=== PATIENT | female | born 1950 | race Caucasian/White ===

== ENCOUNTER 2018-03-17 08:09 | Outpatient (RCR) | payer BC, MEDICARE | END 2018-05-18 | disposition home or self-care (01) | LOC: CR 08:09 | PROVIDERS: ATTEND Surgery | DX: Z48.812 Encounter for surgical aftercare following surgery on the circulatory system (principal); Z95.1 Presence of aortocoronary bypass graft | CPT/HCPCS: 93798 ==

== ENCOUNTER 2018-04-16 08:04 | Outpatient (RCR) | payer MEDICARE | END 2018-04-18 | disposition home or self-care (01) | LOC: CR3 08:04 | PROVIDERS: ATTEND Surgery | DX: Z48.812 Encounter for surgical aftercare following surgery on the circulatory system (principal); Z95.1 Presence of aortocoronary bypass graft ==

== ENCOUNTER → 2018-05-19 | Outpatient (RCR) | payer MEDICARE | END | disposition home or self-care (01) | LOC: CR3 04-19 07:00 | PROVIDERS: ATTEND Surgery | DX: Z48.812 Encounter for surgical aftercare following surgery on the circulatory system (principal); Z95.1 Presence of aortocoronary bypass graft ==

== ENCOUNTER 2018-06-11 07:20 | Outpatient (RCR) | payer MEDICARE | END 2018-06-20 | disposition home or self-care (01) | LOC: CR3 07:20 | PROVIDERS: ATTEND Surgery | DX: Z48.812 Encounter for surgical aftercare following surgery on the circulatory system (principal); Z95.1 Presence of aortocoronary bypass graft; Z29.8 Encounter for other specified prophylactic measures ==

== ENCOUNTER → 2020-07-02 | Outpatient (CLI) | payer MEDICARE ==
[~2020-07-02] VITALS: Ht 162 cm; Wt 82.0 kg
[~2020-07-02] MED LIST: REGADENOSON 0.4 MG/5 ML SYR (LEXISCAN) IV ONE
[2020-07-02] MEDS: CATHETER FLUSH 10 ML SYR IV PRN ×2 (08:11→09:27)
[2020-07-02 09:24] VITALS: BP 196/104
--- NOTE | 2020-07-02 10:52 | Cardiology Stress Test Report ---
Stress Test Report Date of Procedure/Referring: Date of Procedure: July 02, 2020 PCP Lucrecia Reyes MD Admitting Physician Chelsie Gonzalez MD Indications: CP Baseline Heart Rate: 95 Baseline Blood Pressure: Blood Pressure Systolic: 196 Blood Pressure Diastolic: 104 Baseline Vitals Vital Signs Date Time Temp Pulse Resp B/P (MAP) Pulse Ox O2 Delivery O2 Flow Rate FiO2 07/02/20 09:24 100 196/104 (134) 97 Room Air Baseline EKG: Baseline EKG: NSR Summary After explaining the procedure to the patient, she signed a consent and then brought to the stress nuclear laboratory. Patient received 0.4 mg Lexiscan for stress test, ECG, heart rate and blood pressure were monitored continuously. Resting and stress dose of radio tracer were injected, imaging was acquired and reviewed in short axis, horizontal long axis and vertical long axis views. TID: 1.07 SSS: 10 SDS: 9 EF: 69 1. Patient tolerated Lexiscan well 2. Breast attenuation with mild decreased uptake involving the mid to apical anterolateral and inferolateral wall with mild reversibility 3. Normal left ventricular size, EF 69% LUCRECIA REYES MD July 02, 2020 10:52
== END ==
LOC: CARD 08:15
PROVIDERS: ATTEND Internal Medicine Cardiovascular Disease
DX: R07.9 Chest pain, unspecified (principal)
CPT/HCPCS: 78452; 93017; A9502

== ENCOUNTER 2020-07-11 11:00 | Day surgery (SDC) | payer MEDICARE ==
[2020-07-11] VITALS (11 sets, daily range): BP systolic 139–165; BP diastolic 75–91
[2020-07-11 10:04] LABS: HEMATOCRIT 43 % (35-52); HEMOGLOBIN 14.9 g/dL (11.5-16.0); MEAN CORPUSCULAR HEMOGLOBIN 31 pg (25-34); MEAN CORPUSCULAR HGB CONC 35 g/dL (32-36); MEAN CORPUSCULAR VOLUME 89 fL (80-99); MEAN PLATELET VOLUME 9.8 fL (9.0-12.2); PLATELET COUNT 276 10^3/uL (130-400); WHITE BLOOD COUNT 6.5 10^3/uL (4.3-11.0)
--- NOTE | 2020-07-11 10:14 | Diagnostic Imaging Report ---
HISTORY: Abnormal stress test, coronary artery disease, chest pain COMPARISON: 01/26/2012 TECHNIQUE: Frontal view the chest FINDINGS: There is slight elevation of the left hemidiaphragm with mild left basilar atelectasis. No pleural effusion or pneumothorax is seen. The cardiac silhouette is normal in size. Sternotomy wires are noted. IMPRESSION: 1. Mild left basilar atelectasis. Dictated by: Dictated on workstation # [id number]
[2020-07-11 10:17] LABS: PROTHROMBIN TIME PATIENT 13.6 SEC (12.2-14.7)
[2020-07-11 10:27] LABS: ALBUMIN 4.2 GM/DL (3.2-4.5); BILIRUBIN,TOTAL 0.5 MG/DL (0.1-1.0); CALCIUM 9.5 MG/DL (8.5-10.1); CREATININE SERUM 0.96 MG/DL (0.60-1.30); POTASSIUM 3.9 MMOL/L (3.6-5.0); TOTAL PROTEIN 7.6 GM/DL (6.4-8.2)
[~2020-07-11 11:00] MED LIST changes: +ACET-2267 PO; +ASPI-1238 PO; +ATOR40TA70 PO; +HEParin (CATH LAB) 2,000 ML IV ONE; +HYDR25TA4 PO; +LIDOCAINE 1% INJ 20 ML 20 ML VIAL ONE; +MELA10TA2 PO; +METF-397 PO; +MIDAZOLAM 5 MG/5 ML (VERSED) VIAL ONE; +MTP100TCR PO; +NS IV 1000 ML 1,000 ML IV SCH; +NS IV 1000 ML 1,000 ML ONE; -REGADENOSON 0.4 MG/5 ML SYR (LEXISCAN) IV ONE; +VERA180T PO; +fentaNYL INJ 100 MCG/2 ML AMP ONE
[2020-07-11] MEDS ORDERED: METF-397 PO (11:44)
[2020-07-11] MEDS ORDERED: NS IV 1000 ML 1,000 ML IV SCH (11:45)
[2020-07-11] MEDS ORDERED: PATIENT MAY USE OWN MEDS, ALL PO SCH (11:45)
--- NOTE | 2020-07-11 11:45 | Discharge Inst-Post CATH ---
Discharge Inst-CATH/EP Problems Reviewed?: Yes Post Cardiac Cath/EP D/C Inst Follow Up/Plan Appointment with Dr. Reyes's office in 2 to 4 weeks <b>CARDIAC CATH/EP PROCEDURE DISCHARGE INSTRUCTIONS</b> ACTIVITY * Go Home directly and rest. * Limit activity of the leg (or wrist if it was used) for 7 days including aer obics, swimming, jogging, bicycling, etc. * Restrict stair-climbing for 7 days if possible, if not, climb up with your non-cath leg, then bring together on the same step. * Avoid lifting, pushing, pulling or excessive movement of the affected extremi ty for 7 days. * Customary sexual activity may be resumed after 2 days-use caution not to use a position that strains or causes pain to the affected extremity. * No driving for 24 hours. * NO SMOKING. * Avoid straining for bowel movements for 7 days. * Gentle walking on level ground is allowed. * Returning to work will depend on the type of procedure and the results. Your doctor will discuss this with you. CALL YOUR DOCTOR FOR ANY OF THE FOLLOWING: *If bleeding from the puncture site occurs- Apply gentle pressure to site with clean cloth and call your doctor or EMS. * If a knot or lump forms under the skin, increases in size, or causes pain. * If bruising appears to be worsening or moving further down your leg instead of disappearing. * Temperature above 101 F. CARE OF YOUR GROIN INCISION; * Bruising or purple discoloration of the skin near the puncture site is common. * You may shower only, no bathtub bathing for 5 days. Be careful to avoid slipping as your leg may feel stiff. * If a closure device was used on your femoral artery, please see the attached guide regarding care of the device and your leg. * Leave dressing on FOR 24 hours. CARE OF YOUR WRIST INCISION; * Bruising or purple discoloration of the skin near the puncture site is common. * You may shower. * DO NOT submerge wrist. * Leave dressing on FOR 24 hours. LUCRECIA REYES MD July 11, 2020 11:44 am
--- NOTE | 2020-07-11 11:51 | Cardiac Cath Report ---
Cardiac Cath Report Physician (s)/Machine Lacer (s) Physician LUCRECIA GUTIERREZ MD Pre-Procedure Diagnosis Pre-Procedure Diagnosis: Coronary artery disease Post-Procedure Note Procedure Start Date: July 11, 2020 Name of Procedure: Left heart catheterization Left ventriculogram Vein graft angiogram Findings/Procedure Note PROCEDURE NOTE: 70-year-old lady with history of hokum, had history of myomectomy, had CABG x1, abnormal stress test, scheduled for cardiac catheterization After explaining the procedure to the patient, all pros and cons were explained, all questions were answered. The patient signed the consent and then she was placed on the cardiac catheterization laboratory. Groin was prepped SL fashion local anesthesia was used. Sheath placed in the right femoral artery artery. Vishal right and left catheter were used to access the coronary system.Vein Graft evaluated. Vishal right catheter was prolapsed to the left ventricular cavity, left ventriculogram was done, pullback LV to aorta was done. At the end of the procedure the sheath was removed. Closure device was deployed FINDINGS: Hemodynamics LV 156/14, end-diastolic pressure 14 Aorta 155/75 mean of 107 No significant gradient across the left ventricular outflow tract ANATOMY: Left Main is free of obstructive disease Left Anterior Descending has myocardial bridging at the midportion, diagonal artery is occluded, had a patent vein graft to the diagonal system Left Circumflex is moderate in size with no obstructive disease Right Coronary Artery is moderate in size with no obstructive disease Vein Graft evaluation showed 1 vein graft to the diagonal artery that is patent with no obstructive disease LV Gram was done showing mild left ventricular hypertrophy, normal systolic function, EF 60% CONCLUSION: 1. 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 Patent vein graft to the diagonal branch with good flow distally 3. Mild LVH, normal systolic function, no significant gradient across the left ventricular outflow tract DISCUSSION AND RECOMMENDATION: Continue with medical therapy no intervention is warranted Anesthesia Type: Conscious Sedation Estimated blood loss (mL): 25 ml Contrast Amount: 42 ml Total Radiation Dose: 329 mGy Post-Procedure Diagnosis Post-operative diagnosis: Coronary artery disease Hypertrophic obstructive cardiomyopathy Hypertension Hyperlipidemia LUCRECIA GUTIERREZ MD July 11, 2020 11:51 am
== END 2020-07-11 17:10 | disposition home or self-care (01) ==
LOC: CSD 12:10 → CATH 17:10
PROVIDERS: ATTEND Internal Medicine Cardiovascular Disease
DX: I25.10 Atherosclerotic heart disease of native coronary artery without angina pectoris (principal); I42.1 Obstructive hypertrophic cardiomyopathy; I10 Essential (primary) hypertension; I65.23 Occlusion and stenosis of bilateral carotid arteries; E78.5 Hyperlipidemia, unspecified; E11.9 Type 2 diabetes mellitus without complications; K21.9 Gastro-esophageal reflux disease without esophagitis; Z95.1 Presence of aortocoronary bypass graft; Z79.82 Long term (current) use of aspirin; Z79.84 Long term (current) use of oral hypoglycemic drugs; Z79.899 Other long term (current) drug therapy
CPT/HCPCS: 71045; 80053; 80061; 85027; 85610; 85730; 87081; 93459; C1760; C1894; 36415

== ENCOUNTER 2021-08-13 08:44 | Outpatient (CLI) | payer MEDICARE ==
[~2021-08-13] VITALS: Ht 162.6 cm; Wt 75.0 kg
== END 2021-08-16 13:07 | disposition home or self-care (01) ==
LOC: PREOP 08:44
PROVIDERS: ATTEND Specialist
DX: Z01.818 Encounter for other preprocedural examination (principal)

== ENCOUNTER → 2021-08-13 | Outpatient (CLI) | payer MEDICARE ==
[~2021-08-13] MED LIST changes: -HEParin (CATH LAB) 2,000 ML IV ONE; -LIDOCAINE 1% INJ 20 ML 20 ML VIAL ONE; -MIDAZOLAM 5 MG/5 ML (VERSED) VIAL ONE; -NS IV 1000 ML 1,000 ML IV SCH; -NS IV 1000 ML 1,000 ML ONE; -fentaNYL INJ 100 MCG/2 ML AMP ONE
--- NOTE | 2021-08-13 13:13 | Diagnostic Imaging Report ---
INDICATION: 71-year-old postmenopausal female. COMPARISON: None FINDINGS: AP Spine L1-L4: [BMD (g/cm2): 1.056] [T-Score: -1.2] [Z-Score: 0.2] [BMD Previous: na] [BMD % Change: na] LT Hip Neck: [BMD (g/cm2): 0.895] [T-Score: -1.0] [Z-Score: 0.5] LT Hip Total: [BMD (g/cm2):0.902] [T-Score:-0.8] [Z-Score: 0.4] [BMD Previous: na] [BMD % Change: na] RT Hip Neck: [BMD (g/cm2):0.843] [T-Score:-1.4] [Z-Score:0.1] RT Hip Total: [BMD (g/cm2):0.951] [T-score:-0.4] [Z-Score:0.8] [BMD Previous:na] [BMD % Change:na] World Health Organization criteria for BMD interpretation classify patients as Normal (T-score at or above -1.0), Osteopenic (T-score between -1.0 and -2.5) or Osteoporotic (T-score at or below -2.5). LIMITATIONS AND MODIFICATION: None. FRACTURE RISK (FRAX SCORE): The ten year probability of (%): Major Osteoporotic Fracture: [9.7] Hip Fracture: [1.3] IMPRESSION: 1. Osteopenia (Low bone mass). 2. Baseline examination. 3. See below National Osteoporosis Foundation guidelines on when to potentially initiate pharmacologic therapy. Based on the National Osteoporosis Foundation Guidelines, pharmacologic treatment should be initiated in any of the following, unless clinical conditions suggest otherwise: * Any patient with prior fragility fracture of the hip or vertebrae. A spine fracture indicates 5X risk for subsequent spine fracture and 2X risk for subsequent hip fracture. * Osteoporosis (T-score <-2.5). * Postmenopausal women and men age 50 and older with low bone mass/osteopenia (T-score between -1.0 and -2.5) by DXA and 10-year major osteoporotic fracture greater than 20% or a 10-year probability of hip fracture greater than 3%. These fracture risks are supplied above in the FRAX score, if applicable. * Clinician judgement and/or patient preferences may indicate treatment for people with 10-year fracture probabilities above or below these levels. Dictated by: Dictated on workstation # [id number]
--- NOTE | 2021-08-14 14:17 | Diagnostic Imaging Report ---
INDICATION: Routine screening. COMPARISON: 12/02/2016. TECHNIQUE: 2D and 3D bilateral screening mammography was performed with CAD. FINDINGS: Both breasts are heterogeneously dense, limiting the sensitivity of mammography. The overall parenchymal pattern appears to be stable. A retroareolar density on the right is stable. The patient appears to have inverted nipples bilaterally. There are numerous benign calcifications bilaterally. No spiculated mass or malignant-appearing microcalcifications are seen. The axillae are unremarkable. IMPRESSION: No mammographic features suspicious for malignancy are identified. ACR BI-RADS Category 2: Benign findings. Result letter will be mailed to the patient. Note: At least 10% of breast cancer is not imaged by mammography. Dictated by: Dictated on workstation # [id number]
== END ==
LOC: RAD 10:18
PROVIDERS: ATTEND Nurse Practitioner Family
DX: Z12.31 Encounter for screening mammogram for malignant neoplasm of breast (principal); M85.80 Other specified disorders of bone density and structure, unspecified site; Z78.0 Asymptomatic menopausal state
CPT/HCPCS: 77063; 77067; 77080

== ENCOUNTER 2021-08-23 11:05 | Day surgery (SDC) | payer MEDICARE ==
[~2021-08-23] VITALS: Ht 162.6 cm; Wt 75.0 kg
[2021-08-23] MEDS ORDERED: LIDOCAINE PF 1% 2 ML VIAL IR PRN (11:30)
[2021-08-23] MEDS ORDERED: POVIDONE (BETADINE) OPHTH SOLN 5% 30 ML OP ONE (11:30)
[2021-08-23] MEDS ORDERED: TIMOLOL MALEATE 0.5% 5 ML (TIMOPTIC) BTL OU PRN (11:30)
[2021-08-23] MEDS ORDERED: MOXIFLOXACIN OPHTH SOLN 5 MG/ML 0.3 ML SYRINGE OP ONE (11:30)
[2021-08-23] MEDS: TETRACAINE 0.5% OPHTH SOLN 4 ML BTL (SINGLE DOSE ONLY) OU PRN ×4 (11:42→11:59)
[2021-08-23] MEDS: PHENYLEPHRINE 10% OPHTH (NEO-SYN) 5 ML BTL OU SCH ×3 (11:48→11:59)
[2021-08-23] MEDS: TROPICAMIDE 1% OPH SOLN (MYDRIACYL) 15 ML BTL OP SCH ×3 (11:48→11:59)
[2021-08-23 11:50] VITALS: BP 169/85
[2021-08-23] MEDS ORDERED: MIDAZOLAM 2 MG/2 ML (VERSED) VIAL ONE (12:08)
--- NOTE | 2021-08-23 12:26 | Ophthalmologist Pre-Op Note ---
Pre-Operative Progress Note H&P Reviewed The H&P was reviewed, patient examined and no changes noted. Date H&P Reviewed: Aug 23, 2021 Time H&P Reviewed: 12:25 Pre-Op Dx Cataract, Right Eye DIANE GIRALDO MD Aug 23, 2021 12:26
--- NOTE | 2021-08-23 12:42 | Ophthalmology Operative Report ---
Cataract removal/placement IOL PREOPERATIVE DIAGNOSIS: Cataract Right Eye POSTOPERATIVE DIAGNOSIS: Cataract Right Eye PROCEDURE: Cataract removal and placement of posterior chamber implant, right eye SURGEON: Jamari Giraldo ANESTHESIA: Topical with sedation COMPLICATIONS: None ESTIMATED BLOOD LOSS: Minimal DESCRIPTION OF PROCEDURE: After proper informed consent was obtained, the patient, a 71 female, was taken to the Operating Room and the right eye was anesthetized with tetracaine. The right eye was then prepped and draped in the usual manner. A wire lid speculum was placed. A paracentesis was made at the left hand position. Preservative free lidocaine was injected into the anterior chamber followed by viscoelastic. A clear corneal incision was made in the temporal position. A capsulorrhexis was preformed and the central nuclear and cortical material were removed. The posterior capsule was polished and Clement 14.0 AU00T0 IOL was placed into the capsular bag. The residual viscoelastic was aspirated and balanced saline solution was injected into the anterior chamber. Moxifloxacin was injected into the anterior chamber. The wound was checked and found to be water tight. The patient tolerated the procedure well without complications. JAMARI GIRALDO MD Aug 23, 2021 12:42
[2021-08-23 12:51] VITALS: BP 161/81
[2021-08-23] MEDS ORDERED: acetaZOLAMIDE ER 500 MG CAP (DIAMOX SEQUELS) PO ONE (13:30)
--- NOTE | 2021-08-23 13:47 | Anesthesia-General Post-Op ---
MAC Patient Condition Mental Status/LOC: Same as Preop Cardiovascular: Satisfactory Nausea/Vomiting: Absent Respiratory: Satisfactory Pain: Controlled Complications: Absent Post Op Complications Complications None Follow Up Care/Instructions Patient Instructions None needed. Anesthesiology Discharge Order Discharge Order Patient is doing well, no complaints, stable vital signs, no apparent adverse anesthesia problems. No complications reported per nursing. MELCHOR BUSTAMANTE CRNA Aug 23, 2021 13:47
== END 2021-08-23 12:52 | disposition home or self-care (01) ==
LOC: SDC 11:05
PROVIDERS: ATTEND Specialist
DX: E11.36 Type 2 diabetes mellitus with diabetic cataract (principal); H25.9 Unspecified age-related cataract; Z88.2 Allergy status to sulfonamides; Z79.82 Long term (current) use of aspirin; Z79.84 Long term (current) use of oral hypoglycemic drugs; Z95.1 Presence of aortocoronary bypass graft
CPT/HCPCS: 66984; V2632

== ENCOUNTER 2021-09-03 06:06 | Outpatient (CLI) | payer MEDICARE | END 2021-09-03 08:42 | disposition home or self-care (01) | LOC: PREOP 06:06 | PROVIDERS: ATTEND Specialist | DX: Z01.818 Encounter for other preprocedural examination (principal) ==

== ENCOUNTER 2021-09-06 08:30 | Day surgery (SDC) | payer MEDICARE ==
[~2021-09-06] VITALS: Ht 162.6 cm; Wt 75.0 kg
[2021-09-06] MEDS: TETRACAINE 0.5% OPHTH SOLN 4 ML BTL (SINGLE DOSE ONLY) OU PRN ×4 (08:41→08:58)
[2021-09-06] MEDS ORDERED: MOXIFLOXACIN OPHTH SOLN 5 MG/ML 0.3 ML SYRINGE OP ONE (08:45)
[2021-09-06] MEDS ORDERED: TIMOLOL MALEATE 0.5% 5 ML (TIMOPTIC) BTL OU PRN (08:45)
[2021-09-06] MEDS ORDERED: POVIDONE (BETADINE) OPHTH SOLN 5% 30 ML OP ONE (08:45)
[2021-09-06 08:46] VITALS: BP 155/86
[2021-09-06] MEDS: PHENYLEPHRINE 10% OPHTH (NEO-SYN) 5 ML BTL OU SCH ×3 (08:48→08:58)
[2021-09-06] MEDS: TROPICAMIDE 1% OPH SOLN (MYDRIACYL) 15 ML BTL OP SCH ×3 (08:48→08:58)
--- NOTE | 2021-09-06 09:15 | Ophthalmologist Pre-Op Note ---
Pre-Operative Progress Note H&P Reviewed The H&P was reviewed, patient examined and no changes noted. Date H&P Reviewed: Sep 06, 2021 Time H&P Reviewed: 09:15 Pre-Op Dx Cataract, Left Eye DIANE GIRALDO MD Sep 06, 2021 09:15
[2021-09-06] MEDS ORDERED: MIDAZOLAM 2 MG/2 ML (VERSED) VIAL ONE (09:21)
--- NOTE | 2021-09-06 09:36 | Ophthalmology Operative Report ---
Cataract removal/placement IOL PREOPERATIVE DIAGNOSIS: Cataract Left Eye POSTOPERATIVE DIAGNOSIS: Cataract Left Eye PROCEDURE: Cataract removal and placement of posterior chamber implant, left eye SURGEON: Jamari Giraldo ANESTHESIA: Topical with sedation COMPLICATIONS: None ESTIMATED BLOOD LOSS: Minimal DESCRIPTION OF PROCEDURE: After proper informed consent was obtained, the patient, a 71 female, was taken to the Operating Room and the left eye was anesthetized with tetracaine. The left eye was then prepped and draped in the usual manner. A wire lid speculum was placed. A paracentesis was made at the left hand position. Preservative free lidocaine was injected into the anterior chamber followed by viscoelastic. A clear corneal incision was made in the temporal position. A capsulorrhexis was preformed and the central nuclear and cortical material were removed. The posterior capsule was polished and an Clement 15.0 AU00T0 was placed into the capsular bag. The residual viscoelastic was aspirated and balanced saline solution was injected into the anterior chamber. Moxifloxacin was injected into the anterior chamber. The wound was checked and found to be water tight. The patient tolerated the procedure well without complications. JAMARI GIRALDO MD Sep 06, 2021 09:36
[2021-09-06 09:59] VITALS: BP 140/71
--- NOTE | 2021-09-06 13:06 | Anesthesia-General Post-Op ---
MAC Patient Condition Mental Status/LOC: Same as Preop Cardiovascular: Satisfactory Nausea/Vomiting: Absent Respiratory: Satisfactory Pain: Controlled Complications: Absent Post Op Complications Complications None Follow Up Care/Instructions Patient Instructions None needed. Anesthesiology Discharge Order Discharge Order Patient is doing well, no complaints, stable vital signs, no apparent adverse anesthesia problems. No complications reported per nursing. JULIANA LIANG CRNA Sep 06, 2021 13:06
== END 2021-09-06 10:00 | disposition home or self-care (01) ==
LOC: SDC 08:30
PROVIDERS: ATTEND Specialist
DX: E11.36 Type 2 diabetes mellitus with diabetic cataract (principal); H25.9 Unspecified age-related cataract; Z88.2 Allergy status to sulfonamides; Z95.1 Presence of aortocoronary bypass graft; Z79.84 Long term (current) use of oral hypoglycemic drugs; Z79.82 Long term (current) use of aspirin
CPT/HCPCS: 66984; V2632

== ENCOUNTER → 2022-02-18 | Outpatient (CLI) | payer MEDICARE | LOC: CARD 12:30 | PROVIDERS: ATTEND Physician Assistant | DX: I08.1 Rheumatic disorders of both mitral and tricuspid valves (principal); I11.9 Hypertensive heart disease without heart failure | CPT/HCPCS: 93306 ==